=== PATIENT | female | born 1970 | race Caucasian/White ===

== ENCOUNTER 2022-09-04 01:39 | Day surgery (SDC) | payer OTHER, SELFPAY ==
[2022-08-22 13:24] VITALS: BMI 21.3
--- NOTE | 2022-08-22 13:29 | PC.NURSE ---
Report to the Outpatient Waiting Room, entrance under the green pavilion located off [facility], at time 0800 on date 09/04/22. Planned Procedure Time: 1000. Time changes happen often and if your time is changed the preop area will call you the afternoon before. - You and your visitor will be asked to self-screen and do not enter if you have any COVID symptoms. - Only one visitor is requested with a max of two and NO children visitors are allowed at this time. - The patient visitor may be requested to leave or wait in car when not with patient due to distancing restrictions. - A mask is optional within the hospital. Patients may have clear liquids (water, carbonated beverages, clear teas, apple juice) until 3 hours prior to surgery with a maximum of 20 ounces. - No food from midnight until time of surgery Take the following medications with a SIP of water the morning of surgery: NONE Medications to discontinue per physician: VITAMINS Date to take last dose: 08/31/22 Please no make-up, nail portuguese, hairspray, perfume, deodorant, or body powder the day of surgery. No jewelry (including any body piercings) or valuables the day of surgery, leave them at home. Please take a shower or bath the night before, or the morning of, surgery with an antibacterial soap. Wear comfortable, loose fitting clothing. - Jewelry must be removed prior to entering the operating room. Rings and piercings that are not removed may be cut off. - The hospital will not accept responsibility for valuables. - Please leave all valuables, including medications, at home the day of surgery. If you are going home after surgery, a licensed hazmat cdl driver must drive you home. - NO public transportation without another adult if you receive anesthesia. - We recommend that an adult stay with you for 24 hours following discharge. - We also recommend that you do not drive, make important decision, drink alcoholic beverages, or take any drugs that were not prescribed by your health care provider for at least 24 hours after your discharge time. Follow any additional instructions given to you from your surgeon. If you or anyone in your household have experienced Covid symptoms in the past week, please notify your surgeon or the nurse liaison at the phone number below for possible testing. Telephone instructions given to PT - EDGAR BRYAN and asked if any additional questions and then verbalized understanding. Patient advised to call surgeon office or pre surgery nurse liaison [phone] if any additional questions.
[2022-09-04] VITALS (10 sets, daily range): BP systolic 105–145; BP diastolic 64–79; PULSE 59–80; RESP 11–20; TEMP 36.4–37.1; O2SAT 98–100
[2022-09-04] MEDS: LACTATED RINGERS 1,000 ML 30 ML IV CONT ×2 (08:20→13:12)
--- NOTE | 2022-09-04 09:33 | WPDANESEPPF ---
Anes - Initial Pre Proc Eval Procedure: Operation Date: 09/04/22 10:00 Proposed Procedures p Abdominoplasty with Abdominal Liposuction - Isiah Ayala MD Date/Time: 09/04/22 09:33 Surgeon: Isiah Ayala MD Pre Op Diagnosis: skin laxity Patient Data Age: 51 Gender: F Height: 1.7 m Weight: 62.8 kg Last Vital Signs Temp 36.6 C 09/04/22 08:36 Pulse 76 09/04/22 08:36 Resp 16 09/04/22 08:36 BP 145/79 H 09/04/22 08:36 Pulse Ox 100 09/04/22 08:36 O2 Del Method Room Air 09/04/22 08:36 Allergies Allergy/AdvReac Type Severity Reaction Status Date / Time No Known Allergies Allergy Verified 09/04/22 08:13 Home Medications Medication Instructions Recorded Confirmed Type cholecalciferol (vitamin D3) 125 125 mcg PO DAILY 08/22/22 08/22/22 History mcg (5,000 unit) tablet (Vitamin D3) multivitamin 1 tablet PO DAILY 08/22/22 08/22/22 History vitamin E 670 mg (1,000 unit) 670 mg PO DAILY 08/22/22 08/22/22 History capsule Laboratory Tests 09/04/22 09:14 Cotinine Pending Patient hx anesthesia problems: post op nausea/vomiting Family hx anesthesia problems: none Results Review: All pre-operative results and documents have been reviewed as part of the pre-operative evaluation. [facility] Social History Social History Smoking status: Never smoker Alcohol intake: current Alcohol use details: RARE Substance use: never Substance use type: does not use Living arrangements: with family Spiritual care concerns: No Anes - Eval Final PreProcedure Day of Procedure 09/04/22 09:33 Patient weight: normal Heart: regular rate and rhythm Lungs: clear to auscultation Airway: Mallampati scale class II Neurological: alert and oriented Last oral intake: >/= 8 hours ASA classification: I Emergent: no Anesthetic plan: proceed Anesthesia type and monitoring: general LMA and standard monitoring Results Review: All pre-operative results and documents have been reviewed as part of the pre-operative evaluation. Informed Consent: The patient's anesthetic plan and its attendant risks and benefits were discussed with the patient/family/POA. Questions were solicited and answers provided to the satisfaction of the patient/family/POA.
[2022-09-04 09:34] LABS: Urine Cotinine NEGATIVE
--- NOTE | 2022-09-04 09:46 | WPDHPUPDATE1 ---
History and Physical Update Update Date/Time: 09/04/22 09:46 History and Physical has been reviewed, including an updated exam of the patient. There are NO changes in the patient's condition. Risks, benefits, and alternatives have been discussed and questions answered. Patient agrees to proceed with procedure.
--- NOTE | 2022-09-04 09:47 | W.PM.PROC2 ---
Procedure Note - Detailed Date of Procedure 09/04/22 Pre-op Diagnosis skin laxity Post-op Diagnosis Same Procedure Performed Progressive tension abdominoplasty with suction lipectomy (abdomen / flank) Surgeon Isiah Ayala MD Anesthesia General Findings Tissue removed: 968.2 grams Lipoaspirate: 1800 cc Description of Procedure They are here today for abdominoplasty. Previously and again today the risks, benefits, alternatives were discussed in extensive detail. I wanted them to be very realistic about the risks involved as well as expectations. We discussed aftercare and what to monitor for. I was very upfront about the risks of wound breakdown leading to loss of skin, open wounds, and need for additional procedures with permanent abdominal deformity. We discussed DVT/PE risks and management. Made sure answered all of their questions to their satisfaction today and consent was obtained. They were marked in the preoperative holding area with their verification. The patient was taken to the operating room placed supine on the operating table. Anesthesia was provided by anesthesiology. A Diaz catheter was started. They were prepped and draped in a standard sterile fashion. A surgical time-out was taken. I placed the patient in a flexed position to verify the upper and lower markings would reach. I then placed supine. A thorough abdominal examination was completed. Stab incisions were made and tumescent solution infiltrated. Once adequate time was allowed for hemostasis a 5mm basket cannula was utilized to complete suction lipectomy based on S.A.F.E. technique in multiple planes and passes. There were turned to bilateral lateral decubitus position with care taken to protect them for injury during this process. Suction lipectomy continued to result based on pre-operative planning, intra-operative observation, and rolling pinch test which were in full agreement. A 10 blade was used to make the upper incision. I continued dissection down to the level of fascia. Elevated just what was necessary for repair of the diastasis. I then again flexed the bed to verify the upper skin flap would reach the lower markings without tension. Once verified I placed her supine once again and a 10 blade used to make the lower incision. I elevated up to level the umbilicus and left the umbilicus intact on a well-vascularized stalk. The intervening tissue was removed. A 2 mm blunt cannula with 0.5% bupivicaine was injected deep to the fascia bilaterally. I plicated the diastasis recti using 0 PDO stratafix barbed suture. This was in 2 separate layers using 2 separate sutures as well. I repaired around the umbilicus leaving plenty of room for well-vascularized stalk of the umbilicus with 2-0 PDS. I also repaired lateral to the rectus using two layers of 0 PDO stratafix. The patient was flexed and starting from superior to inferior began plication using 2-0 Vicryl to obliterate all space in a standard progressive tension fashion. At the umbilicus I marked out the location of the skin and inset this with 3-0 Monocryl and 4-0 Vicryl. I continued the remainder of the plication using 2-0 Vicryl until I reached my lower planned scar line. I trimmed any excess skin of the upper flap making sure this was a tension-free closure. I then approximated using a 3 point suture with 2-0 Vicryl followed by 3-0 stratafix ,running subcuticular 4-0 Monocryl, and tissue glue. Fluffs and an abdominal binder were placed. The patient was transferred to the bed in a flexed position. Awoken and taken to the PACU without difficulty. All instrument and sponge counts were correct at the end of the case. Estimated Blood Loss 50 Drains No Packing No Pathology None sent Complications No immediate complications Condition Stable Disposition PACU
[2022-09-04] MEDS: SCOPOLAMINE 1.5 MG PATCH TRANSDERM (09:48)
[2022-09-04] MEDS: TRANEXAMIC ACID 1,000MG/ISO100 1,000 MG/100 ML BAG 200 MG IVPB (09:57)
[2022-09-04] MEDS: ceFAZolin 2 GM/D5W 50 ML 2 GM/50 ML BAG IVPB (10:08)
[2022-09-04] MEDS: LACTATED RINGERS IRRIG 1,000 ML, LIDOCAINE HCL 1% LOCAL INJ 50 ML, EPINEPHrine HCL INJ ... INFILTRATE ×3 (10:36→12:56)
[2022-09-04] MEDS: LIDO 1%/EPINEPHRINE/PF 1:200,000 30 ML VIAL XX (10:38)
[2022-09-04] MEDS: BUPIVACAINE HCL 0.25% PF 30 ML VIAL INFILTRATE (10:38)
--- NOTE | 2022-09-04 13:43 | SUR.PHASEI ---
1342: Simple mask removed.
[2022-09-04] MEDS: HYDROmorphone HCL INJ (*CRX) 1 MG/ML SYR 0.5 MG IV PUSH ×2 (13:54→13:59)
--- NOTE | 2022-09-04 14:33 | OBPPTRN ---
1437 Patient transferred to post room #289 via BED. Support person present. Oriented to unit, room, information board, admission packet and security measures. Patient verbalizes understanding.
[2022-09-04] MEDS: LACTATED RINGERS 1,000 ML 125 ML IV CONT (15:06)
[2022-09-04] MEDS: KETOROLAC 15 MG/ML VIAL (*BKC) IV PUSH (15:16)
[2022-09-04] MEDS: GABAPENTIN 300 MG CAPSULE PO (17:39)
[2022-09-04] MEDS: carisoprodoL (*CRX) 350 MG TABLET PO (17:41)
[2022-09-05] VITALS (7 sets, daily range): BP systolic 89–108; BP diastolic 51–64; PULSE 53–66; RESP 16–20; TEMP 36.6–37; O2SAT 95–100
[2022-09-05] MEDS: DOCUSATE SODIUM 100 MG CAPSULE PO ×2 (00:05→09:05)
[2022-09-05] MEDS: carisoprodoL (*CRX) 350 MG TABLET PO ×3 (00:05→12:48)
[2022-09-05] MEDS: LACTATED RINGERS 1,000 ML 125 ML IV CONT (00:06)
[2022-09-05] MEDS: oxyCODONE/ACETAMINOPHEN (*CRX) 5-325 MG TABLET PO ×2 (00:14→10:05)
[2022-09-05] MEDS: KETOROLAC 15 MG/ML VIAL (*BKC) IV PUSH (04:39)
--- NOTE | 2022-09-05 06:43 | WPDPN ---
Progress Note: A&P Assessment and Plan (1) Encounter for cosmetic surgery: Code(s): Z41.1 - Encounter for cosmetic surgery Status: Acute Plan Doing well after progressive tension abdominoplasty and suction lipectomy. Will plan for discharge home. Today we had a lengthy discussion about the care. Activity limitations. What monitor for. This was a lengthy open-ended conversation making sure she was well informed. Answered all of her questions. Discussed what is an emergency and went to proceed to the emergency room/ dial 911. She understands for all her questions to call at any time. I will see her back Subjective Date/time seen: 09/05/22 06:43 Interval history: She underwent progressive tension abdominoplasty with suction lipectomy. Postoperatively she has done well. When sitting up she is getting a little bit lightheaded however this does resolved. No fevers or chills. No nausea vomiting. No shortness of breath. No chest pain. No calf tenderness. Otherwise doing very well she states. Review of Systems Review of Systems: All systems reviewed & are unremarkable except as noted in HPI and below Exam Narrative: Alert and oriented no obvious distress Respiratory unlabored Abdomen soft. No signs of infection. No hematoma. No seroma. Good color and capillary refill. No calf tenderness. Negative Homans. Objective Data Vital Signs Vital Signs: Vital Signs - 24 hr 09/04/22 08:36 09/04/22 13:12 09/04/22 13:20 Temperature 36.6 C 36.4 C Pulse Rate 76 80 68 Respiratory Rate 16 14 13 Blood Pressure 145/79 H 115/64 119/72 Pulse Oximetry 100 100 100 Oxygen Delivery Room Air Simple Face Mask Simple Face Mask Oxygen Flow Rate 8 8 09/04/22 13:25 09/04/22 13:40 09/04/22 13:55 Temperature Pulse Rate 68 65 64 Respiratory Rate 11 L 12 13 Blood Pressure 120/71 122/71 119/71 Pulse Oximetry 100 100 100 Oxygen Delivery Simple Face Mask Simple Face Mask Room Air Oxygen Flow Rate 8 8 09/04/22 14:10 09/04/22 14:25 09/04/22 15:10 Temperature 37.1 C Pulse Rate 64 59 L 59 L Respiratory Rate 15 15 16 Blood Pressure 118/74 123/70 126/69 Pulse Oximetry 100 98 100 Oxygen Delivery Room Air Room Air Oxygen Flow Rate 09/04/22 14:37 09/04/22 20:00 09/04/22 20:00 Temperature 37.1 C Pulse Rate 69 Respiratory Rate 20 Blood Pressure 105/78 Pulse Oximetry 98 Oxygen Delivery Room Air Room Air Oxygen Flow Rate 09/05/22 00:18 09/05/22 00:18 09/05/22 02:20 Temperature 36.6 C Pulse Rate 66 53 L Respiratory Rate 18 20 Blood Pressure 106/62 89/51 L Pulse Oximetry 100 100 Oxygen Delivery Room Air Oxygen Flow Rate 09/05/22 02:43 09/05/22 03:20 09/05/22 04:32 Temperature Pulse Rate 56 L 57 L Respiratory Rate 16 18 Blood Pressure 95/59 L 91/56 L 90/59 L Pulse Oximetry 95 97 Oxygen Delivery Oxygen Flow Rate 09/05/22 04:42 09/05/22 04:49 Temperature 37.0 C Pulse Rate Respiratory Rate Blood Pressure Pulse Oximetry Oxygen Delivery Room Air Oxygen Flow Rate Intake/Output Intake/Output: Intake & Output 09/02/22 09/03/22 09/04/22 09/05/22 23:59 23:59 23:59 23:59 Intake Total 1910 300 Output Total 720 475 Balance 1190 -175 Meds/Results Medications: Active Medications Generic Name Dose Route Start Last Admin Trade Name Freq PRN Reason Stop Dose Admin Carisoprodol 350 mg 09/04/22 18:00 09/05/22 00:05 Carisoprodol (*Crx) 350 Mg Tablet PO 350 mg Q6HR RJ Administration Diazepam 5 mg 09/04/22 13:13 Diazepam (*Crx) 5 Mg Tablet PO TID PRN Anxiety Docusate Sodium 100 mg 09/04/22 21:00 09/05/22 00:05 Docusate Sodium 100 Mg Capsule PO 100 mg Q12HR RJ Administration Enoxaparin Sodium 40 mg 09/05/22 09:00 Enoxaparin 40 Mg/0.4 Ml Syringe SUB-Q DAILY RJ Gabapentin 300 mg 09/04/22 17:00 09/04/22 17:39 Gabapentin 300 Mg Capsule PO 300 mg
--- NOTE | 2022-09-05 06:47 | P.DS_ITS ---
DS: Admitting Diagnosis Discharge Date 09/05/2022 Admitting Diagnosis Encounter for cosmetic surgery DS: Discharge Diagnosis Discharge Diagnosis (1) Encounter for cosmetic surgery: Code(s): Z41.1 - Encounter for cosmetic surgery Status: Acute DS: Summary Hospital Course Hospital Course: She underwent progressive tension abdominoplasty and suction lipectomy. Postoperatively has done very well. Ambulating. Pain controlled. Tolerating diet. Will plan for discharge home Time Spent with Patient Time attestation: Total time spent providing and/or coordinating discharge services: Exam Narrative: Alert and oriented no obvious distress Respiratory unlabored Abdomen soft. No signs of infection. No hematoma. No seroma. Good color and capillary refill. No calf tenderness. Negative Homans. DS: Data Data Completed and Pending Labs on day of discharge: Labs from last 24 hours 09/04/22 09:14 Cotinine Negative Discharge Plan Discharge Patient Disposition: Home, Self-Care Discharge Instructions: POST OPERATIVE DISCHARGE INSTRUCTIONS ISIAH AYALA M.D. [facility] [id number] [facility] [address] [place] [address] * No driving for 24 hours after anesthesia and while you are taking pain med ication. * Take all prescribed medication as directed * Diet as tolerated. * No lifting or activity that raises blood pressure for 48 hours. * Regular walking / ambulation. * May shower 24 hours after surgery. Once you shower do not take pain medication before showering as the combination of medication and heat may cause you to feel dizzy or pass out. * No pools or tubs for 2 weeks. * Slowly stand up straight as tolerated. * No straining or lifting more than 20 pounds. * If no bowel movement within 24 hours may use laxative. * Call with any questions or concerns. * Dressing Care: Continue abdominal binder / foam 23 hours per day. If you have any questions or concerns, please call the office . If it is after hours you will be directed to the battalion chief exchange. Shortness of breath, chest pain, or other medical emergency dial 911 / proceed to the Emergency Room. Remove the Scopolamine patch that was placed behind your left ear in 72 hours or less. Wash your hands after touching. Stand Alone Forms: General Discharge Instructions Follow-up/Referrals: Isiah Ayala MD [Physician] - 1 Week Discharge Medications: Continued multivitamin Tablet 1 tablet PO DAILY vitamin E 670 mg (1,000 unit) Capsule 670 mg PO DAILY cholecalciferol (vitamin D3) [Vitamin D3] 125 mcg (5,000 unit) Tablet 125 mcg PO DAILY
--- NOTE | 2022-09-05 08:14 | PC.NURSE ---
On 09/05/22, the student, Marisol Melara, provided care and completed [facility] documentation on this patient. I have reviewed the student's documentation and agree with the findings.
--- NOTE | 2022-09-05 09:01 | WPDANESPN ---
Anes - Prog Note Post-Op Date/Time: 09/05/22 09:01 Cardiovascular status: normal Respiratory status: normal Airway patency: baseline Mental status: baseline Post-Op hydration status: normal Vital Signs: Last Vital Signs Temp 98.6 F 09/05/22 07:12 Pulse 62 09/05/22 07:12 Resp 18 09/05/22 07:12 BP 108/64 09/05/22 07:12 Pulse Ox 97 09/05/22 07:12 O2 Del Method Room Air 09/05/22 06:56 O2 Flow Rate 8 09/04/22 13:40 Pain Score (VAS): 5 I/O: Intake & Output 09/04/22 09/05/22 09/05/22 23:59 07:59 15:59 Intake Total 1260 800 Output Total 600 475 Balance 660 325 09/04/22 09:14 Cotinine Negative Post-procedural complaints: other (c/o dizziness & fatigue post narcotics. discussed non-narcotic pain management as well as reduced narcotic use post discharge ) Patient Feedback: Patient satisfied with anesthetic care.
[2022-09-05] MEDS: ENOXAPARIN 40 MG/0.4 ML SYRINGE SUB-Q (09:05)
[2022-09-05] MEDS: GABAPENTIN 300 MG CAPSULE PO ×2 (09:05→12:48)
== END 2022-09-05 13:18 | disposition home or self-care (01) ==
LOC: ANHSURGERY 09:51 → ANHOB2 14:42
PROVIDERS: Visit Provider Surgery Plastic and Reconstructive Surgery
PROC: (CPT 15830; principal; 2022-09-04 10:00)
DX: Z41.1 Encounter for cosmetic surgery (principal); L57.4 Cutis laxa senilis
CPT/HCPCS: 15830; 15847; 15877; 80307; 99199; A9270; J0171; J0690; J1100; J1170; J1650; J1885; J2250; J2405; J2704; J3010; J7120